=== PATIENT | female | born 1970 | race Caucasian/White ===

== ENCOUNTER 2017-05-11 19:44 | Emergency (ER) | payer OTHER ==
[~2017-05-11] VITALS: Ht 160 cm; Wt 104.2 kg
[2017-05-11 20:04] VITALS: TEMP 36.9; Ht 160 cm; Wt 104.2 kg
--- NOTE | 2017-05-11 20:41 | DIAGNOSTIC IMAGING REPORT ---
LEFT TIBIA/FIBULA 2 VIEWS ROUTINE CLINICAL HISTORY: Left leg swelling. Pain. COMPARISON: None. DISCUSSION: No fractures or dislocations are visualized. There are no erosive or destructive changes. No focal soft tissue masses are visualized on conventional radiographic imaging. Mild edema is suspected. IMPRESSION: No bony abnormalities identified. Electronically signed by: Stiven Barone M.D. 05/11/2017 8:40 PM Dictated Date/Time: 05/11/2017 8:39 PM
[2017-05-11] MEDS ORDERED: LISI-461 PO (20:54)
[2017-05-11] MEDS ORDERED: CEPH500C PO ×2 (20:54→21:27)
[2017-05-11] MEDS ORDERED: ESOM20CA PO (20:54)
[2017-05-11] MEDS ORDERED: CITA40TA12 PO (20:54)
--- NOTE | 2017-05-11 21:13 | DIAGNOSTIC IMAGING REPORT ---
ULTRASOUND LEFT VENOUS DOPP LOWER EXT UNILAT CLINICAL HISTORY: Left leg swelling/pain COMPARISON STUDY: No previous studies for comparison. FINDINGS: Real-time and color flow Doppler imaging were performed. Flow was seen within the femoral, popliteal and calf veins with no intraluminal thrombus demonstrated. The saphenous vein is patent. IMPRESSION: No evidence of left lower extremity DVT. Electronically signed by: Stiven Barone M.D. 05/11/2017 9:12 PM Dictated Date/Time: 05/11/2017 9:12 PM
[2017-05-11] MEDS ORDERED: CEPHALEXIN 500MG HOME PACK 1 EA BTL PO STA (21:23)
--- NOTE | 2017-05-11 21:28 | EMERGENCY ROOM VISIT NOTE ---
History First contact with patient: 20:10 Chief Complaint: SWELLING TO EXTREMITY Stated Complaint: SWELLED L FOOT History of Present Illness The patient is a 46 year old female who presents to the Emergency Room via private vehicle with complaints of "swelling to left foot". The patient states that about a week and half ago the dog leash brushed the side of her left leg causing a lot of friction removing the skin. She noted a burning pain initially. She been doing well but the area them swelled and became reddened. She was seen in urgent care and given Keflex 500 mg twice a day 7 days. She states that it is not healing. She notes it is not really any worse. She denies any fevers, chills, nausea, vomiting. She points to the left lateral aspect of the reyes as a location of the wound. Review of Systems A complete 6-point Review of Systems was discussed with the patient, with pertinent positives and negatives listed in the History of Present Illness. All remaining Review of Systems questions can be considered negative unless otherwise specified. Past Medical/Surgical History High blood pressure, bronchitis, stomach problems, gallbladder disease, kidney stones, hysterectomy, lithotripsy Family History Diabetes, heart disease, high blood pressure, cancer, kidney disease or stones. Social History Smoking Status: Current Every Day Smoker Social History: Patient lives with and 2 daughters. She admits to tobacco use. Current/Historical Medications Scheduled Cephalexin Monohydrate (Keflex), 500 MG PO BID Cephalexin Monohydrate (Keflex), 500 MG PO QID Citalopram Hydrobromide (Celexa), 40 MG PO DAILY Esomeprazole Magnesium (Nexium), 20 MG PO BID Lisinopril (Zestril), 10 MG PO DAILY Allergies Coded Allergies: No Known Allergies (Unverified , 05/11/17) Physical Exam Vital Signs Date Time Temp Pulse Resp B/P (MAP) Pulse Ox O2 Delivery O2 Flow Rate FiO2 05/11/17 21:40 61 20 152/79 95 Room Air 05/11/17 20:04 36.9 79 18 156/84 97 Room Air Physical Exam VITAL SIGNS - Vital signs and nursing notes were reviewed. Patient is afebrile , hypertensive at 156/84, non-tachycardic and is saturating well on room air 97% . GENERAL -46-year-old female appearing her stated age who is in no acute distress. Communicates well with provider and answers questions appropriately. SKIN - there is a 1 cm x 6 cm region overlying the left lateral distal reyes that is scabbed, with slight underlying erythema. There is a small yellow exudate from this region. No fluctuance nature to this. There is no extending erythema. EXTREMITIES - No clubbing or peripheral cyanosis. No pretibial edema present. She is neurovascularly intact in left lower extremity. There is a trace amount of pedal edema on the left. There is tenderness to palpation overlying the left scabbed region. +5/5 strength noted in UE/LE bilaterally. Medical Decision & Procedures ER Provider Diagnostic Interpretation: ULTRASOUND LEFT VENOUS DOPP LOWER EXT UNILAT CLINICAL HISTORY: Left leg swelling/pain COMPARISON STUDY: No previous studies for comparison. FINDINGS: Real-time and color flow Doppler imaging were performed. Flow was seen within the femoral, popliteal and calf veins with no intraluminal thrombus demonstrated. The saphenous vein is patent. IMPRESSION: No evidence of left lower extremity DVT. Electronically signed by: Stiven Barone M.D. 05/11/2017 9:12 PM Dictated Date/Time: 05/11/2017 9:12 PM LEFT TIBIA/FIBULA 2 VIEWS ROUTINE CLINICAL HISTORY: Left leg swelling. Pain. COMPARISON: None. DISCUSSION: No fractures or dislocations are visualized. There are no erosive or destructive changes. No focal soft tissue masses are visualized on conventional radiographic imaging. Mild edema is suspected. IMPRESSION: No bony abnormalities identified. Electronically signed by: Stiven Barone M.D. 05/11/2017 8:40 PM Dictated Date/Time: 05/11/2017 8:39 PM Medications Administered Medications (Trade) Dose Ordered Sig/Bob Route Start Time Stop Time Status Last Admin Dose Admin Cephalexin Monohydrate (Keflex 500MG Home Pack) 1 homepack NOW STAT PO 05/11/17 21:23 05/11/17 21:25 DC 05/11/17 21:23 1 HOMEPACK Medical Decision Patient was seen and evaluated as above. After obtaining a thorough history and physical examination radiographs an ultrasound was obtained. This was secondary to subjective and objective examination findings. I suspect the patient is likely experiencing pain and swelling secondary to healing of the wound. I do not suspect sepsis or osteomyelitis. Radiograph negative for acute process. Ultrasound negative for DVT. The patient appears to have a wound that has been healing but very slowly. She is been on Keflex. I do believe that there is a small underlying cellulitis and for this reason will increase the Keflex to 500 mg 4 times a day for the remainder of the course to make it 10 days, and was going to initiate Bactrim however this interferes with her Pato inhibitors. Therefore I believe that just the Keflex will be appropriate. She is to return if worse and follow-up in 48 hours by returning here for recheck. At that time if the wound is not progressing I do believe that referral to a wound center is appropriate or worse perhaps admission to the hospital for IV antibiotics. Patient was offered this, but after thorough discussion decided upon in at home trial. I do believe this is reasonable. Her vital signs here do not reveal any fever. She is a follow-up regarding her high blood pressure. She was educated upon management, educated upon worrisome symptoms which to return, had questions prior to discharge, and was discharged home in good condition. In evaluation treatment this patient following differential diagnoses entertained: DVT, sepsis, cellulitis, among others. Impression Primary Impression: Cellulitis Departure Information Dispostion Home / Self-Care Condition GOOD Prescriptions Cephalexin Monohydrate (Keflex) 500 Mg Cap 500 MG PO QID, #14 CAP Prov: Luke Lynch PA-C 05/11/17 Referrals No Doctor, Assigned (PCP) Patient Instructions My [facility] Additional Instructions You were seen in the emergency Department for a wound on her left lower leg. X- ray reveals no fracture and ultrasound reveals no blood clot. I suspect this is healing well, however did want to ensure that it resolves. I would like you to increase her Keflex to 500 mg every 6 hours, which is 4 times a day. Please increase your current dose of this, you've been provided a home pack for this medication here with the remainder sent to the pharmacy. This is to make the total dose 10 days. Please have someone look at this and 48 hours, ideally returning here would be best for a wound recheck. At that point a referral to the wound care center, or if worsening admission may be warranted. Please return if this worsens at any point. Please return to the emergency department with any new/concerning symptoms.
[2017-05-11 21:40] VITALS: BP 152/79; PULSE 61; O2SAT 95
== END 2017-05-11 21:42 | disposition home or self-care (01) ==
LOC: C.EDB 19:46 → MERGE 19:46 → C.EDD 21:42
DX: L03.116 Cellulitis of left lower limb (principal); I10 Essential (primary) hypertension; Z87.442 Personal history of urinary calculi; K82.9 Disease of gallbladder, unspecified; Z83.3 Family history of diabetes mellitus; Z82.49 Family history of ischemic heart disease and other diseases of the circulatory system; Z80.9 Family history of malignant neoplasm, unspecified; Z84.1 Family history of disorders of kidney and ureter; Z79.899 Other long term (current) drug therapy